=== PATIENT | female | born 1985 | race Caucasian/White ===

== ENCOUNTER 2020-12-21 09:08 | Observation (INO) | payer MEDICAID ==
[~2020-12-21] VITALS: Ht 167.6 cm; Wt 113.0 kg
[2020-12-21] MEDS ORDERED: ACETAMINOPHEN 325MG TABLET PO STA (09:42)
[2020-12-21 12:01] VITALS: BP 125/83
== END 2020-12-21 12:50 | disposition home or self-care (01) ==
LOC: ER 09:24 → 8 EST A/PP 11:55
PROVIDERS: ADMIT Obstetrics & Gynecology; ATTEND Obstetrics & Gynecology
DX: O9A.212 Injury, poisoning and certain other consequences of external causes complicating pregnancy, second trimester (principal); S00.83XA Contusion of other part of head, initial encounter; O26.892 Other specified pregnancy related conditions, second trimester; R10.9 Unspecified abdominal pain; O30.002 Twin pregnancy, unspecified number of placenta and unspecified number of amniotic sacs, second trimester; Z3A.25 25 weeks gestation of pregnancy; W18.09XA Striking against other object with subsequent fall, initial encounter; Y92.89 Other specified places as the place of occurrence of the external cause; Y93.89 Activity, other specified; Y99.8 Other external cause status
CPT/HCPCS: 76805; 76810; 99284; G0378

== ENCOUNTER 2020-12-21 12:43 | Observation (INO) | payer MEDICAID | END 2020-12-21 12:50 | disposition home or self-care (01) | LOC: 8EST NSY 12:43 | PROVIDERS: ADMIT Obstetrics & Gynecology; ATTEND Obstetrics & Gynecology | DX: O99.891 Other specified diseases and conditions complicating pregnancy (principal); M54.9 Dorsalgia, unspecified; Z3A.23 23 weeks gestation of pregnancy; V49.9XXA Car occupant (driver) (passenger) injured in unspecified traffic accident, initial encounter; Y93.89 Activity, other specified; Y92.89 Other specified places as the place of occurrence of the external cause; Y99.8 Other external cause status | CPT/HCPCS: 59025; G0378; 99281 ==

== ENCOUNTER 2022-09-29 07:29 | Emergency (ER) | payer MEDICAID ==
[~2022-09-29] VITALS: Ht 167.6 cm; Wt 96.0 kg
[2022-09-29] MEDS ORDERED: SODIUM CHLORIDE 0.9% 1,000 ML IV ONE (07:45)
[2022-09-29 08:01] LABS: EOSINOPHILS % 6.5 % (0.0-5.0); HEMATOCRIT. 39.2 % (36.0-48.0); HEMOGLOBIN. 12.9 g/dL (12.0-16.0); MEAN CORPUSCULAR HEMOGLOBIN 29.7 pg (28.0-32.0); MEAN CORPUSCULAR VOLUME 90.5 fL (81.0-99.0); MEAN PLATELET VOLUME 10.2 fl (7.4-10.4); MONOCYTES % 6.2 % (2.0-8.0); NEUTROPHILS % 54.3 % (40.0-76.0); PLATELET 179 x1000/uL (130-400); RED BLOOD CELL COUNT 4.34 mill/uL (4.2-5.4); RED CELL DISTRIBUTION WIDTH 13.7 % (11.6-14.6)
[2022-09-29 08:14] LABS: HCG SCREEN NEGATIVE
[2022-09-29 08:16] LABS: CHLORIDE 112 mEq/L (98-107)
[2022-09-29 10:31] LABS: CLARITY URINE CLEAR (CLEAR); COLOR URINE YELLOW (YELLOW); KETONES URINE NEGATIVE (NEGATIVE); LEUKOCYTE ESTERASE URINE NEGATIVE (NEGATIVE); NITRITE URINE NEGATIVE (NEGATIVE); OCCULT BLOOD URINE NEGATIVE (NEGATIVE); PH URINE 6.5 (4.5-8.0); PROTEIN URINE NEGATIVE (NEGATIVE); SPECIFIC GRAVITY URINE 1.003 (1.005-1.030); UROBILINOGEN URINE 0.2 E.U./dL (0.2-1.0)
[2022-09-29 10:41] VITALS: BP 104/49
== END 2022-09-29 11:09 | disposition home or self-care (01) ==
LOC: ER 07:29
DX: R42 Dizziness and giddiness (principal); R55 Syncope and collapse
CPT/HCPCS: 36415; 80053; 81003; 83605; 84703; 85025; 87040; 93005; 96360; 99284; J7030; Z7610